=== PATIENT | female | born 1995 | race Hispanic/Latino ===

== ENCOUNTER 2021-03-20 02:47 | Emergency (ER) | payer SELFPAY ==
[2021-03-20 03:06] VITALS: BP 147/95; PULSE 102; RESP 17; TEMP 37.1; O2SAT 98; BMI 32.0
[2021-03-20 03:14] VITALS: PULSE 102; O2SAT 98
[2021-03-20 03:30] VITALS: BP 139/80; PULSE 104; O2SAT 97
[2021-03-20 04:00] VITALS: BP 118/73; PULSE 80; O2SAT 97
--- NOTE | 2021-03-20 04:11 | ED.BACK ---
HPI - Back Pain/Injury General Chief Complaint: Abdominal Pain Stated Complaint: right side/back pain x2 weeks Time Seen by Provider: 03/20/21 02:49 Source: patient Limitations: no limitations History of Present Illness HPI Narrative: 25-year-old female nonsmoker with noncontributory medical history presents with her significant other and a chief complaint of ongoing right-sided upper back and anterior abdominal pain for the past month. 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 Since then she has had ongoing pain that is very pinpoint at the 2 locations mention. Her symptoms are worse with use of her upper extremity and recruitment of the muscles in the region of her pain. She denies any chest pain or shortness of breath. She has had no fever or chills. She denies nausea, vomiting or diarrhea. She denies any change in bowel or bladder habits. She is not taking any medications for her discomfort such as Tylenol, Motrin or other Related Data Previous Rx's Medication Instructions Recorded cyclobenzaprine 10 mg tablet 10 mg PO TID PRN #14 tab 03/20/21 ketorolac 10 mg tablet 10 mg PO Q6H PRN #14 tab 03/20/21 lidocaine 5 % topical patch 1 patch TOP DAILY #15 each 03/20/21 (Lidoderm) Allergies Allergy/AdvReac Type Severity Reaction Status Date / Time No Known Drug Allergies Allergy Verified 03/20/21 03:06 Review of Systems Review of Systems Narrative: GENERAL: Denies chills, fatigue, malaise, fever, sweats. HEENT: Denies sinus pain, ear pain, sore throat, difficulty swallowing, dizziness. RESPIRATORY: Denies dyspnea, cough, wheezing, hemoptysis, sputum. CARDIOVASCULAR: Denies chest pain, palpitations, orthopnea, edema, GASTROINTESTINAL: Denies nausea, vomiting, abdominal pain, diarrhea, constipation, melena. : Denies dysuria, frequency, incontinence, hematuria, urinary retention. MUSCULOSKELETAL: see HPI SKIN: Denies rash, skin lesions, or other NEUROLOGIC: Denies weakness, headache, numbness, change in speech, confusion, seizures, incoordination. PSYCHIATRIC: No concerning psychosocial issues. 12 point review of systems is negative except for those stated above Exam Narrative Exam Narrative: GEN: AOx3 and in mild distress EYES: Pupils are equal, round, and reactive to light and accommodation. Extraoccular muscles are intact bilaterally. There is no subconjunctival hemorrhage or exudate. CHEST: Lungs are clear to auscultation bilaterally and free of wheezes, rales, or rhonchi. Heart rate is regular rhythm, there are no murmurs, clicks, rubs, or gallops. There is no chest wall tenderness. ABD: Abdomen is soft and nontender. There is no guarding or rebound. Bowel sounds are normal in all 4 quadrants. There is no mass or organomegaly. EXT: Full painless ROM of all extremities with no loss of sensation or strength. SKIN: Warm, pink, and dry. No erythema or rash BACK: Patient has reproducible sharp and stabbing pain in her right upper thoracic region that is worse with use of her upper extremity. Additionally she has pain in her right upper quadrant in her abdominal muscle wall. Initial Vital Signs Initial Vital Signs: Vital Signs Temperature 98.8 F 03/20/21 03:06 Pulse Rate 102 H 03/20/21 03:06 Respiratory Rate 17 03/20/21 03:06 Blood Pressure 147/95 H 03/20/21 03:06 Pulse Oximetry 98 03/20/21 03:06 Course Orders Ordered: Discontinued Medications Cyclobenzaprine HCl (Cyclobenzaprine 10 Mg Prepack) 1 bottle MISC SEEINSTR ONE Stop: 03/20/21 03:57 Lidocaine (Lidocaine Patch 1 Each Adh..Patch) 1 each TOP NOW ONE Stop: 03/20/21 03:57 Vital Signs Vital signs: Vital Signs - 8 hr 03/20/21 03:06 Temperature 98.8 F Pulse Rate 102 H Respiratory Rate 17 Blood Pressure 147/95 H Pulse Oximetry 98 MDM - Back Pain/Injury MDM Narrative Medical decision making narrative: Patient with ongoing localized and reproducible pain after an injury when lifting a heavy patient a month ago. She has a very reassuring history and physical exam. No systemic findings. Return precautions discussed and questions answered to her apparent satisfaction Discharge Plan Departure Patient Disposition: Home Clinical Impression: Strain of abdominal wall, Acute thoracic myofascial strain Instructions: DI for Abdominal Muscle Strain Activity Restrictions/Additional Instructions: *You have been diagnosed with [abdominal wall strain and thoracic muscle strain *What to do: *Please continue to take your regular medications as directed. [x ] New medication prescriptions sent to your pharmacy: [[facility]] [ ] New medication written as a paper prescription [ ] No new medications given *Please follow up with your primary care provider in 2-3 days, call for an appointment. Let them know you were seen in the Emergency Department and that we ask that you be seen in follow up. We will electronically transmit a record of today's note if your PCP is in our system *If you do not have a primary care provider please contact the [facility] Resource line at [phone]. They will ask some questions about your medical history and help get you set up with a doctor in the community. *Return to Emergency Department if you should have any new, worsening or concerning symptoms, such as [fever greater than 101 F, shaking chills, worsening pain, persistent vomiting or other bothersome symptoms] Prescriptions: New cyclobenzaprine 10 mg tablet 10 mg PO TID PRN (Reason: muscle spasm) Qty: 14 0RF ketorolac 10 mg tablet 10 mg PO Q6H PRN (Reason: pain) Qty: 14 0RF lidocaine [Lidoderm] 5 % adhesive patch,medicated 1 patch TOP DAILY Qty: 15 0RF Rx Instructions: leave on most painful area for 12 hrs
[2021-03-20] MEDS: CYCLOBENZAPRINE 10 MG PREPACK 1 BOTTLE MISC (04:14)
== END 2021-03-20 04:21 | disposition home or self-care (01) ==
PROVIDERS: Emergency Provider Emergency Medicine
DX: S39.011A Strain of muscle, fascia and tendon of abdomen, initial encounter (principal); X50.0XXA Overexertion from strenuous movement or load, initial encounter
CPT/HCPCS: 99281